=== PATIENT | female | born 1950 | race Caucasian/White ===

== ENCOUNTER → 2024-07-20 | Day surgery (SDC) | payer OTHER ==
[2024-07-17 10:43] LABS: Absolute Eosinophils 0.1 K/uL (0-0.5); Absolute Lymphocytes (CBC) 1.8 K/uL (0.7-4.9); Absolute Monocytes 0.5 K/uL (0.1-1.3); Absolute Neutrophil 2.8 K/uL (1.8-8.0); Basophils % 0.8 % (0-1.3); Eosinophils % 1.9 % (0-4.4); Hematocrit 35.3 % (36.0-45.0); Lymphocytes % 34.4 % (15.3-44.8); MCH 30.3 pg (27.0-35.0); MCV 89.2 fL (80-100); MPV 7.5 fL (7.6-11.3); Monocytes % 9.6 % (3.3-12.3); Neutrophils % 53.3 % (41.7-73.7); Platelets 263 thou/uL (152-406); RBC Red Blood Cell Count 3.96 M/uL (3.86-4.86); Red Cell Distribution Width 15.2 % (12.1-15.2)
--- NOTE | 2024-07-18 12:31 | EKG ---
Test Date: 2024-07-17 Test Time: 10:25:58 Ball Worker: ESTELITA MEASUREMENT RESULTS: Intervals: Rate: 65 MN: 246 QRSD: 98 QT: 420 QTc: 436 [place]: P: 55 MN: 246 QRS: 40 T: -14 INTERPRETIVE STATEMENTS: Sinus rhythm with 1st degree AV block Inferior infarct, age undetermined Cannot rule out Anterior infarct, age undetermined Abnormal ECG No previous ECG available for comparison Electronically Signed On 07-18-24 12:26:02 CDT by Bora Pelletier
[~2024-07-20] MED LIST: EPHEDRINE SULF 50 MG/ML VIAL ONE; LIDOCAINE 1% MPF 5 ML VIAL ONE; propofoL 200 MG/20 ML VIAL IV ONE
[2024-07-20] MEDS: NA CHLORIDE 0.9% 1,000 ML ONE (07:00)
[2024-07-20 07:27] VITALS: O2SAT 100
[2024-07-20 09:28] VITALS: BP 120/66; TEMP 97.1
== END ==
LOC: OR 06:35
PROVIDERS: ATTEND Surgery
PROC: 0DJD8ZZ Inspection of Lower Intestinal Tract, Via Natural or Artificial Opening Endoscopic (ICD-10-PCS; principal; 2024-07-20 08:00)
DX: Z12.11 Encounter for screening for malignant neoplasm of colon (principal); Z91.199 Patient's noncompliance with other medical treatment and regimen due to unspecified reason; I10 Essential (primary) hypertension; E11.9 Type 2 diabetes mellitus without complications
CPT/HCPCS: 93005; 85025; 80048; 36415; 82947; J2704; J2003; J7030; G0121